=== PATIENT | male | born 1960 | race African-American/Black ===

== ENCOUNTER 2016-10-28 12:53 | Emergency (ER) | payer MEDICAID, OTHER ==
[~2016-10-28] VITALS: Ht 177.8 cm; Wt 70.0 kg
[~2016-10-28 12:53] MED LIST: CYCL1PAK PO; DOCU1CAP39 PO; HYDR10SO PO
[2016-10-28 12:54] VITALS: BP 141/88; PULSE 70; RESP 14; TEMP 98.5; O2SAT 97
[2016-10-28] MEDS ORDERED: ORPHENADRINE INJ 60 MG/2 ML AMP IV ONE (16:15)
[2016-10-28 16:29] LABS: AUTOMATED NEUTROPHIL # 1.8 TH/MM3 (1.8-7.7); BASOPHIL % 0.2 % (0.0-2.0); EOSINOPHIL # 0.1 TH/MM3 (0-0.4); EOSINOPHIL % 2.9 % (0.0-4.0); HEMATOCRIT 40.9 % (39.0-51.0); HEMO FLAGS DIFF FINAL; LYMPH % 41.3 % (9.0-44.0); LYMPHOCYTE # 1.6 TH/MM3 (1.0-4.8); MEAN CELL VOLUME 85.1 FL (80.0-100.0); MEAN CORPUSCULAR HEMOGLOBIN 27.8 PG (27.0-34.0); MEAN CORPUSCULAR HGB CONC 32.7 % (32.0-36.0); MONO % 9.2 % (0.0-8.0); NEUT % 46.4 % (16.0-70.0); PLATELET COUNT 227 TH/MM3 (150-450); RED BLOOD COUNT 4.81 MIL/MM3 (4.50-5.90); RED CELL DISTRIBUTION WIDTH 13.5 % (11.6-17.2)
--- NOTE | 2016-10-28 16:35 | PD ---
HPI Chief Complaint: Fall Time Seen by Provider: 13:50 Travel History International Travel<30 days: No Contact w/Intl Traveler<30days: No Traveled to known affect area: No History of Present Illness HPI Patient is a 56-year-old male presenting to emergency for evaluation of right shoulder and right hip pain after he sustained a mechanical fall yesterday. Patient states that he has been falling frequently over the last 2 years. Patient states that he sustained a cervical spine fracture 2 years ago, was temporarily paralyzed, he has residual weakness on the right side, his right hand is contracted. He states he is falling more because his balance is off, at times he has to hold onto the caraballo just to walk. He denies any feeling of the room spinning he just feels as if he is drunk when he walks. Patient states that he has had joint pain since the initial cervical spine fracture and his primary doctor was giving him ibuprofen for that. PFSH Past Medical History Arthritis: Yes Autoimmune Disease: No Anxiety: Yes (secondary to paranoia) Depression: Yes (H/O suicidal ideation and intent) Heart Rhythm Problems: No Cancer: No High Cholesterol: No Chest Pain: No Congestive Heart Failure: No Diabetes: No Diminished Hearing: No Endocrine: No Gastrointestinal Disorders: No Genitourinary: No Hypertension: Yes (not currently on medication) Immune Disorder: No Implanted Vascular Access Dvce: No Musculoskeletal: Yes Neurologic: No Psychiatric: Yes (Susbtance-Induced Mood D/O, auditory hallucinations, h/o suicidal intent) Reproductive: No Respiratory: No Tetanus Vaccination: Never Vaccinated Influenza Vaccination: No Past Surgical History Abdominal Surgery: No Cardiac Surgery: No Ear Surgery: No Endocrine Surgery: No Eye Surgery: No Genitourinary Surgery: No Neurologic Surgery: Yes (cervical spine) Oral Surgery: Yes ([facility], 2002) Thoracic Surgery: Yes (HAD LUNG SURG S/P PNEUMO, 2000) Other Surgery: Yes Social History Alcohol Use: Yes (4 beers a week) Tobacco Use: Yes (OCASSIONALLY - SOCIALLY for cigarettes monthly) Substance Use: Yes (reports marijuana use, denies any other illicit drug use) Allergies-Medications (Allergen,Severity, Reaction): Coded Allergies: Betadine (Verified Allergy, Mild, 10/28/16) Penicillin (Verified Allergy, Mild, HIVES, 10/28/16) Shellfish (Verified Allergy, Mild, 10/28/16) Reported Meds & Prescriptions Reported Meds & Active Scripts Active Flexeril (Cyclobenzaprine HCl) 10 Mg Tab 10 Mg PO TID PRN 10 Days Meloxicam 15 Mg Tab 15 Mg PO DAILY Review of Systems Except as stated in HPI: all other systems reviewed are Neg General / Constitutional: No: Fever, Chills, Weight Loss Eyes: No: Blurred Vision HENT: No: Headaches, Lightheadedness Cardiovascular: No: Chest Pain or Discomfort Respiratory: No: Shortness of Breath Gastrointestinal: No: Nausea, Vomiting, Abdominal Pain Genitourinary: No: Dysuria Musculoskeletal: Positive: Myalgias, Arthralgias Neurologic: Positive: Dizziness, Coordination Problem Physical Exam Narrative GENERAL: Thin, well-developed, alert gentleman. Resting comfortably in no acute distress. SKIN: Warm and dry. HEAD: Atraumatic. Normocephalic. EYES: Pupils equal and round. No scleral icterus. No injection or drainage. ENT: No nasal bleeding or discharge. Mucous membranes pink and moist. NECK: Trachea midline. No JVD. CARDIOVASCULAR: Regular rate and rhythm. No murmur appreciated. RESPIRATORY: No accessory muscle use. Clear to auscultation. Breath sounds equal bilaterally. GASTROINTESTINAL: Abdomen soft, non-tender, nondistended. Hepatic and splenic margins not palpable. MUSCULOSKELETAL: Right upper extremity contracture. No clubbing. No cyanosis. No edema. Tenderness to palpation in paraspinal musculature in the lumbar region. NEUROLOGICAL: Awake and alert. No obvious cranial nerve deficits. Motor grossly within normal limits in bilateral lower extremities. Right hand is contracted, significantly decreased toolmaker strength in that extremity. Normal speech. PSYCHIATRIC: Appropriate mood and affect; insight and judgment normal. Data Data Last Documented VS Vital Signs Date Time Temp Pulse Resp B/P Pulse Ox O2 Delivery O2 Flow Rate FiO2 10/28/16 12:54 98.5 70 14 141/[address] Brain W/O Iv Contrast(Rout) (10/28/16 ) Ct Cerv Spine W/O Contrast (10/28/16 ) Complete Blood Count With Diff (10/28/16 16:01) Comprehensive Metabolic Panel (10/28/16 16:01) Westergren Sedimentation Rate (10/28/16 16:01) C-Reactive Protein (Crp) (10/28/16 16:01) Hip, Uni(Ap&Lat) W Ap Pelvis (10/28/16 ) Shoulder, Limited(2vws) (10/28/16 ) Iv Access Insert/Monitor (10/28/16 16:01) Orphenadrine Inj (Norflex Inj) (10/28/16 16:15) Drug Screen, Random Urine (10/28/16 16:36) Labs Laboratory Tests Test 10/28/16 16:15 White Blood Count 4.0 TH/MM3 Red Blood Count 4.81 MIL/MM3 Hemoglobin 13.4 GM/DL Hematocrit 40.9 % Mean Corpuscular Volume 85.1 FL Mean Corpuscular Hemoglobin 27.8 PG Mean Corpuscular Hemoglobin 32.7 % Concent Red Cell Distribution Width 13.5 % Platelet Count 227 TH/MM3 Mean Platelet Volume 7.6 FL Neutrophils (%) (Auto) 46.4 % Lymphocytes (%) (Auto) 41.3 % Monocytes (%) (Auto) 9.2 % Eosinophils (%) (Auto) 2.9 % Basophils (%) (Auto) 0.2 % Neutrophils # (Auto) 1.8 TH/MM3 Lymphocytes # (Auto) 1.6 TH/MM3 Monocytes # (Auto) 0.4 TH/MM3 Eosinophils # (Auto) 0.1 TH/MM3 Basophils # (Auto) 0.0 TH/MM3 CBC Comment DIFF FINAL Differential Comment Erythrocyte Sedimentation Rate 5 mm/hr Sodium Level 140 MEQ/L Potassium Level 4.8 MEQ/L Chloride Level 107 MEQ/L Carbon Dioxide Level 29.5 MEQ/L Anion Gap 4 MEQ/L Blood Urea Nitrogen 13 MG/DL Creatinine 1.23 MG/DL Estimat Glomerular Filtration 74 ML/MIN Rate Random Glucose 79 MG/DL Calcium Level 9.3 MG/DL Total Bilirubin 0.3 MG/DL Aspartate Amino Transf 49 U/L (AST/SGOT) Alanine Aminotransferase 62 U/L (ALT/SGPT) Alkaline Phosphatase 74 U/L C-Reactive Protein LESS THAN 0.29 MG/DL Total Protein 7.4 GM/DL Albumin 3.8 GM/DL MDM Medical Decision Making Medical Screen Exam Complete: Yes Emergency Medical Condition: Yes Medical Record Reviewed: Yes Interpretation(s) Vital Signs Date Time Temp Pulse Resp B/P Pulse Ox O2 Delivery O2 Flow Rate FiO2 10/28/16 12:54 98.5 70 14 141/88 97 Room Air Differential Diagnosis Arthritis versus hydrocephalus versus electrolyte abnormality versus vertigo versus mass versus substance abuse versus other Narrative Course Patient is a 56-year-old male presenting to the emergency room for evaluation of frequent falling, feeling off balance. He fell yesterday resulting in right shoulder and right hip pain. Patient has a history of drug abuse, he denies that currently. Labs and imaging ordered and pending. X-ray of the right shoulder is negative for acute abnormality, it shows chest osteopenia X-ray of the right hip is negative for acute abnormality. CT of the brain shows no acute abnormality, there is a metallic BB in the scalp. CT of the cervical spine shows postsurgical changes, no acute abnormality. CBC is unremarkable, sedimentation rate is normal, CRP is normal, chemistry is unremarkable. Tox screen is pending however patient admits to using marijuana to help control his pain. Patient will be discharged home at this time. He'll be provided with a prescription for meloxicam as well as a muscle relaxer. He is encouraged to follow up with a primary care provider for ongoing evaluation and management of his chronic health conditions. He is encouraged to avoid use of marijuana and alcohol as this could be contributing to his gait abnormality. He was encouraged to return to emergency department for any new or worsening symptoms. Patient verbalizes understanding of instructions. Patient stable for discharge. Patient states he has a cane at home to ambulate with. He is requesting a ride , discussed with case management who stated that they will assist with this issue. Patient was encouraged to use his cane every time he ambulates to avoid further falls as well. Diagnosis Primary Impression: Fall Qualified Code: W19.XXXA - Fall, initial encounter Additional Impressions: Hip joint pain Qualified Code: M25.551 - Pain of right hip joint Shoulder pain Qualified Code: M25.511 - Acute pain of right shoulder Referrals: Primary Care Physician Patient Instructions: Alcohol Use Disorder (ED), Cannabis Abuse (ED), Fall Prevention (ED), Fall Prevention for Older Adults (ED), General Instructions, Hip Pain (ED), Shoulder Pain (ED) Additional Instructions: Follow-up with your primary doctor ongoing evaluation and management of his chronic health conditions Avoid use of alcohol and marijuana to prevent further falls Maintain adequate fluid intake and a heart healthy diet Return to emergency department for any new or worsening symptoms Med/Other Pt SpecificInfo: Prescription(s) given Scripts Cyclobenzaprine (Flexeril)10 Mg Tab10 Mg PO TID PRN (MUSCLE SPASM) 10 Days Ref 0 Prov:Alessandra River 10/28/16 Meloxicam 15 Mg Tab15 Mg PO DAILY #30 TAB Ref 0 Prov:Alessandra River 10/28/16 Disposition: 01 DISCHARGE HOME Condition: Stable Alessandra River Oct 28, 2016 16:35
[2016-10-28 16:50] LABS: ALT (GPT) 62 U/L (12-78); ANION GAP 4 MEQ/L (5-15); AST (GOT) 49 U/L (15-37); BICARBONATE 29.5 MEQ/L (21.0-32.0); BLOOD UREA NITROGEN 13 MG/DL (7-18); CHLORIDE 107 MEQ/L (98-107); GLOMERULAR FILTRATION RATE 74 ML/MIN (>89); POTASSIUM 4.8 MEQ/L (3.5-5.1); SODIUM (NA) 140 MEQ/L (136-145)
[2016-10-28 16:52] LABS: ALKALINE PHOSPHATASE 74 U/L (45-117); TOTAL BILIRUBIN ADULT 0.3 MG/DL (0.2-1.0)
--- NOTE | 2016-10-28 17:02 | RADRPT ---
EXAM DATE/TIME: 10/28/2016 16:39 [facility] COMPARISON: No previous studies available for comparison. INDICATIONS : Right shoulder pain due to fall. MEDICAL HISTORY : None. SURGICAL HISTORY : Fusion, cervical. ENCOUNTER: Initial ACUITY: 1 day PAIN SCORE: 8/10 LOCATION: Right Shoulder. FINDINGS: Two view examination of the right shoulder demonstrates no evidence of fracture or dislocation. The glenohumeral and acromioclavicular joints are maintained. There is patchy osteopenia. CONCLUSION: Chest eopenia with no acute fracture or malalignment. Arthur Varner MD on October 28, 2016 at 16:59 Board Certified Radiologist. This report was verified electronically.
--- NOTE | 2016-10-28 17:03 | RADRPT ---
EXAM DATE/TIME: 10/28/2016 16:43 [facility] COMPARISON: No previous studies available for comparison. INDICATIONS : Right hip and pelvis pain due to fall. MEDICAL HISTORY : None. SURGICAL HISTORY : Fusion, cervical. ENCOUNTER: Initial ACUITY: 1 day PAIN SCORE: 8/10 LOCATION: Right Hip and pelvis. FINDINGS: Examination of the right hip was performed with AP Pelvis. The primary and secondary trabecular raphael melida of the femoral neck is intact. The hip joint is of normal width without significant sclerosis or bony hypertrophy. The acetabulum is grossly intact. CONCLUSION: Negative trauma study. Arthur Varner MD on October 28, 2016 at 17:00 Board Certified Radiologist. This report was verified electronically.
--- NOTE | 2016-10-28 17:50 | RADRPT ---
EXAM DATE/TIME: 10/28/2016 17:31 [facility] COMPARISON: CT CERVICAL SPINE W/O CONTRAST, February 20, 2015, 1:37. INDICATIONS : Frequent falls. Neck pain. Cervical fusion RADIATION DOSE: 38.18 CTDIvol (mGy) MEDICAL HISTORY : Cardiovascular disease. Hypertension. SURGICAL HISTORY : Fusion, cervical. ENCOUNTER: Initial ACUITY: 1 day PAIN SCALE: 7/10 LOCATION: neck TECHNIQUE: Volumetric scanning of the cervical spine was performed. Multiplanar reconstructions in the sagittal, coronal and oblique axial planes were performed. Using automated exposure control and adjustment o f the mA and/or kV according to patient size, radiation dose was kept as low as reasonably achievable to obtain optimal diagnostic quality images. FINDINGS: VERTEBRAE: Normal vertebral body height. DISCS: The patient is status post interval anterior cervical fusion at the C5-6 level with intact anterior s crew-plate fixation device. Bone grafting material is noted in the interspace and this is well incorp orated. There are 2 metallic markers. There are posterior fusion devices also noted at the C3-4 throu gh C5-6 level. ALIGNMENT: No evidence of subluxation. The axial images are optimal secondary to streak artifact from metal hardware. The disc margins and s angela cord are not well-visualized. There is no evidence of large protrusion. There are mild degenera tive change involving the facets with postsurgical changes. CONCLUSION: 1. No acute fracture or malalignment. 2. Status post interval anterior fusion at the C5-6 level and multilevel posterior fusion. Arthur Varner MD on October 28, 2016 at 17:45 Board Certified Radiologist. This report was verified electronically.
--- NOTE | 2016-10-28 17:51 | RADRPT ---
EXAM DATE/TIME: 10/28/2016 17:31 [facility] COMPARISON: CT BRAIN W/O CONTRAST, November 17, 2015, 16:58. INDICATIONS : Frequent falls. Head pain. RADIATION DOSE: 44.21 CTDIvol (mGy) MEDICAL HISTORY : Cardiovascular disease. Hypertension. SURGICAL HISTORY : Fusion, cervical. ENCOUNTER: Initial ACUITY: 1 day PAIN SCALE: 7/10 LOCATION: facial TECHNIQUE: Multiple contiguous axial images were obtained of the head. Using automated exposure control and adj ustment of the mA and/or kV according to patient size, radiation dose was kept as low as reasonably a chievable to obtain optimal diagnostic quality images. FINDINGS: CEREBRUM: The ventricles are normal for age. No evidence of midline shift, mass lesion, hemorrhage or acute in farction. No extra-axial fluid collections are seen. POSTERIOR FOSSA: The cerebellum and brainstem are intact. The 4th ventricle is midline. The cerebellopontine angle i s unremarkable. EXTRACRANIAL: The visualized portion of the orbits is intact. A metallic BB is again identified the soft tissues of the high right parietal convexity scalp. Minimal mucoperiosteal thickening in the ethmoid air cells SKULL: The calvaria is intact. No evidence of skull fracture. CONCLUSION: 1. Minimal chronic sinus disease. 2. No acute intracranial process. Dirk Sánchez MD on October 28, 2016 at 17:47 Board Certified Radiologist. This report was verified electronically.
[2016-10-28] MEDS ORDERED: MELO-1 PO (18:05)
[2016-10-28] MEDS ORDERED: CYCL1TAB29 PO (18:05)
[2016-10-28 18:07] LABS: AMPHETAMINE, URINE NEG (NEG); BARBITURATES, URINE NEG (NEG); COCAINE, URINE POS (NEG)
[2016-10-28 19:01] VITALS: BP 116/67
== END 2016-10-28 19:39 | disposition home or self-care (01) ==
LOC: NEPC 12:53
DX: M25.551 Pain in right hip (principal); M25.511 Pain in right shoulder; I10 Essential (primary) hypertension; F17.210 Nicotine dependence, cigarettes, uncomplicated; W19.XXXA Unspecified fall, initial encounter; Z91.81 History of falling
CPT/HCPCS: 70450; 72125; 73030; 73502; 80053; 80307; 85025; 85652; 86140; 96374; 99284; J2360